=== PATIENT | male | born 2000 | race Hispanic/Latino ===

== ENCOUNTER 2020-11-22 16:04 | Emergency (ER) | payer OTHER ==
[~2020-11-22] VITALS: Ht 172.7 cm; Wt 75.2 kg
[2020-11-22 16:06] VITALS: BP 137/77
[2020-11-22] MEDS ORDERED: NEOSPORIN OINT 0.9 GM PKT TOP ONE (16:45)
== END 2020-11-22 17:26 | disposition home or self-care (01) ==
LOC: M ED 16:04
DX: S00.421A Blister (nonthermal) of right ear, initial encounter (principal); L50.2 Urticaria due to cold and heat; X31.XXXA Exposure to excessive natural cold, initial encounter; Y92.89 Other specified places as the place of occurrence of the external cause; Y93.02 Activity, running; Y99.9 Unspecified external cause status